=== PATIENT | male | born 1955 | race Caucasian/White ===

== ENCOUNTER 2022-06-26 17:40 | Inpatient (IN) | payer OTHER ==
[~2022-06-26] VITALS: Ht 167.6 cm; Wt 81.6 kg
[2022-06-26 17:54] VITALS: BP 106/55
--- NOTE | 2022-06-26 18:00 | NUR ---
PT RECEIVED, CARE ASSUMED. PT BIB EMS FOR EVALUATION OF LOW HGB. NO SIGNS OF ACTIVE BLEEDING. CONNECTED PT TO TELE MONITOR. INFORMED PT OF BLOOD TRANSFUSION CONSENT. PT UNDERSTANDS. PT SIGNED CONSENT FORM. WILL CONTINUE TO MONITOR
[2022-06-26 18:13] LABS: BASOPHILS # (AUTO) 0.2 K/uL (0.00-0.22); BASOPHILS % (AUTO) 1.7 % (0.0-2.0); EOSINOPHILS # (AUTO) 0.1 K/uL (0-0.4); EOSINOPHILS % (AUTO) 0.8 % (0.0-4.0); LYMPHOCYTES # (AUTO) 1.8 K/uL (2.0-11.5); LYMPHOCYTES % (AUTO) 17.9 % (20.5-51.1); MEAN CORPUSCULAR HEMOGLOBIN 29 pg (27-31); MEAN CORPUSCULAR HGB CONC 33 g/dL (33-37); MEAN CORPUSCULAR VOLUME 87.4 fL (80-94); MONOCYTES # (AUTO) 0.7 K/uL (0.8-1.0); MONOCYTES % (AUTO) 6.3 % (1.7-9.3); NEUTROPHILS # (AUTO) 7.6 K/uL (1.8-7.7); NEUTROPHILS % (AUTO) 73.3 % (42.2-75.2); PLATELET COUNT (AUTO) 448 K/uL (140-450); RED BLOOD CELL COUNT(AUTO) 1.83 MIL/uL (4.20-6.10); RED CELL DISTRIBUTION WIDTH 16.4 % (11.6-13.7); WHITE BLOOD COUNT (AUTO) 10.3 K/uL (4.8-10.8)
[2022-06-26 18:32] LABS: HEMOGLOBIN 5.3 g/dL (12.0-18.0)
[2022-06-26 18:43] LABS: PROTHROMBIN TIME 11.4 secs (10.8-13.4)
[2022-06-26] MEDS ORDERED: PANTOPRAZOLE 40 MG INJ VIAL IVP ONE (18:45)
[2022-06-26 18:48] LABS: ALBUMIN 1.7 g/dL (3.4-5.0); ANION GAP 8.2 (8-16); CARBON DIOXIDE 30.2 mmol/L (21-32); POTASSIUM 4.4 mmol/L (3.5-5.1); TOTAL BILIRUBIN 0.2 mg/dL (0.0-1.0)
[2022-06-26] MEDS ORDERED: ONDANSETRON 4 MG/2 ML VIAL IVP PRN (19:30)
[2022-06-26] MEDS ORDERED: PANTOPRAZOLE 40 MG INJ VIAL ONE ×2 (19:54→21:52)
--- NOTE | 2022-06-26 20:00 | NUR ---
PT ALERT AND ORIENTED X 4, BED BUND WITH MENON. WAITIG FOR BLOOD TRANSUFION
--- NOTE | 2022-06-26 21:00 | NUR ---
PT WANTED TO EAT SOMETHING.
[2022-06-26] MEDS: PANTOPRAZOLE 80 MG in NACL 0.9% 100 ML IVP SCH (22:11)
[2022-06-26] MEDS: NACL 0.9% 1,000 ML IV SCH (22:19)
[2022-06-26] MEDS ORDERED: ACET-2619 PO (23:20)
--- NOTE | 2022-06-26 23:20 | NUR ---
START THE BLOOD TRANSUFION
[2022-06-26] MEDS ORDERED: APIX2.5 PO (23:27)
[2022-06-26] MEDS ORDERED: NOVR SUBQ (23:27)
[2022-06-26] MEDS ORDERED: BISA-213 RC (23:27)
[2022-06-26] MEDS ORDERED: GABA300C PO (23:27)
[2022-06-26] MEDS ORDERED: BUPR-160 PO (23:27)
--- NOTE | 2022-06-26 23:30 | NUR ---
PT COMPALINING CHEST PAIN 01/19.
[2022-06-26] MEDS ORDERED: PRO5 PO (23:32)
[2022-06-26] MEDS ORDERED: LACT10CA1 PO (23:32)
[2022-06-26] MEDS ORDERED: PROP10TA28 PO (23:32)
[2022-06-26] MEDS ORDERED: TAMS0.4C97 PO (23:32)
[2022-06-26] MEDS ORDERED: MAGN400S60 PO (23:32)
[2022-06-26] MEDS ORDERED: ACET-9527 PO (23:32)
--- NOTE | 2022-06-26 23:33 | NUR ---
MED RECONCILE AND PT BELONGINGS COMPLETED
[2022-06-26] MEDS: MORPHINE SULFATE 2 MG/ML SYR IVP PRN (23:53)
--- NOTE | 2022-06-27 00:13 | NUR ---
ATTEMPTED TO CALL AND SON. NO ANSWER. PT AWARE. PT ANXIOUS AND IS WANTING TO SPEAK WITH FAMILY
[2022-06-27] MEDS: ACETAMINOPHEN 325 MG TAB PO PRN ×2 (02:33→18:03)
--- NOTE | 2022-06-27 02:55 | NUR ---
CHANGEDTOOK PIC OF THE WOUND LEFT LEG. PT WAS TURNED AND CHANGED
[2022-06-27] MEDS: MORPHINE SULFATE 2 MG/ML SYR IVP PRN ×4 (04:17→22:55)
[2022-06-27] MEDS ORDERED: PANTOPRAZOLE 40 MG INJ VIAL ONE (05:41)
[2022-06-27] MEDS: PANTOPRAZOLE 80 MG in NACL 0.9% 100 ML IVP SCH (06:02)
[2022-06-27 06:51] LABS: ALBUMIN 1.7 g/dL (3.4-5.0); ANION GAP 8.4 (8-16); CARBON DIOXIDE 29.3 mmol/L (21-32); CREATININE 0.9 mg/dL (0.6-1.3); MAGNESIUM 2.2 mg/dL (1.8-2.4); POTASSIUM 4.7 mmol/L (3.5-5.1); TOTAL BILIRUBIN 0.2 mg/dL (0.0-1.0)
[2022-06-27 07:07] LABS: BASOPHILS # (AUTO) 0.2 K/uL (0.00-0.22); BASOPHILS % (AUTO) 1.9 % (0.0-2.0); EOSINOPHILS # (AUTO) 0.1 K/uL (0-0.4); EOSINOPHILS % (AUTO) 1.4 % (0.0-4.0); LYMPHOCYTES # (AUTO) 1.4 K/uL (2.0-11.5); LYMPHOCYTES % (AUTO) 17.7 % (20.5-51.1); MEAN CORPUSCULAR HEMOGLOBIN 29 pg (27-31); MEAN CORPUSCULAR HGB CONC 34 g/dL (33-37); MEAN CORPUSCULAR VOLUME 87.8 fL (80-94); MONOCYTES # (AUTO) 0.5 K/uL (0.8-1.0); MONOCYTES % (AUTO) 6.3 % (1.7-9.3); NEUTROPHILS # (AUTO) 5.9 K/uL (1.8-7.7); NEUTROPHILS % (AUTO) 72.7 % (42.2-75.2); PLATELET COUNT (AUTO) 374 K/uL (140-450); RED BLOOD CELL COUNT(AUTO) 2.09 MIL/uL (4.20-6.10); RED CELL DISTRIBUTION WIDTH 15.8 % (11.6-13.7); WHITE BLOOD COUNT (AUTO) 8.1 K/uL (4.8-10.8)
--- NOTE | 2022-06-27 07:15 | NUR ---
RECEIVED REPORT FROM XAVIER WINN. ASSUMED CARE AT THIS TIME.
[2022-06-27 07:47] LABS: HEMATOCRIT 18.3 % (36-52); HEMOGLOBIN 6.2 g/dL (12.0-18.0)
--- NOTE | 2022-06-27 08:06 | NUR ---
Patient will be admitted to care of DR. KAUFFMAN. Admited to TELE. Will go to room 127A. Belongings list completed. Report to XAVIER PACHECO.
--- NOTE | 2022-06-27 08:20 | NUR ---
DR KAUFFMAN CALLED. ADVISED OF 6.2 HGB. NO NEW ORDERS
[2022-06-27] MEDS: NACL 0.9% 1,000 ML IV SCH ×2 (08:51→22:10)
--- NOTE | 2022-06-27 09:16 | NUR ---
Admitted from , with chief complaint of , 67 y/o ,Male, Cooperative, oriented to call light, bed, phone,television, bathroom, smoking policy, visiting hours, procedures, ID bracelet on. Belongings list checked. PATIENT RECEIVED FROM ER VIA GURNEY BY ONE OF ASAEL KRISHNAN , ON IV FLUID N/S 0.9% 75CC/H SKIN NOT INTACT , LEFT BKA WITH BAD WOUND , EDEMA ON RIGHT LEG , MONITOR APPLIED A/OX3 , BEDBOUND , FOR BLOOD TRANSFUSION , SAFETY PROACTION ON PLACE , SIDE RAILS UP X3 BED IN LOWER POSITION , CALL LIGHT WITHIN REACH , NPO , FOR IG CONSULT , STILL UNDER OBSERVE .
[2022-06-27] MEDS: PANTOPRAZOLE 40 MG INJ VIAL IVP SCH ×2 (09:21→20:51)
--- NOTE | 2022-06-27 09:49 | NUR ---
WOUND CARE NOTE: PT. ADMITTED WITH LEFT BKA SURGICAL OPEN WOUND, NO SUMMER OR SUTURES OBSERVED AT THIS TIME. LEFT KNEE STUMP SURGICAL WOUND 64M50R0.5CM 75% RED /PINK GRANULATION TISSUE AND 25 % SCATTERED THIN YELLOW SLOUGH TISSUE, MODERATE AMOUNT SEROSANGUINEOUS DRAINAGE, NO ODOR, RAUL WOUND SKIN MOIST, INTACT. NO ERYTHEMA, PAIN 2/10. POC DISCUSSED WITH DR. KAUFFMAN AND REQUEST SURGEON CONSULT. CHARGE NURSE KATHERINE IS AWARE.PT. WITH LOW JOSEPH SCALE AT MODERATE TO HIGH RISK, CONTINUE TO FOLLOW PRESSURE INJURY PREVENTION INTERVENTIONS. RECOMMENDATIONS -SURGEON CONSULT LEFT MARTINEZ WOUND -CLEANSE LEFT KNEE STUMP WITH NS, PAT DRY, APPLY HYDROGEL WITH OIL EMULSION DRESSING TO WOUND BED, COVER WITH ABD PAD AND WRAP WITH KERLIX ROLL, SECURED WITH TAPE QD AND PRN IF SOILING -POSITIONING: TURN AND REPOSITION PATIENT Q 2H OR SOONER USE PILLOWS TO KEEP BONY PROMINENCES FROM DIRECT CONTACT WITH SURFACES USE REPOSITIONING WEDGES TO PROVIDE 30-DEGREE ANGLE FOR SIDE LYING POSITIONS OFFLOADING OR FOAM DRESSING TO ALL TUBING TO PREVENT MEDICAL DEVICES RELATED PRESSURE INJURY -RE-EVALUATING AND MANAGING INCONTINENCE MONITOR SKIN CONDITION DURING POSITION CHANGE DO NOT MASSAGE REDNESS, BONY PROMINENCES FREQUENT RAUL-CARE AND PROVIDE BARRIER CREAMS PRN IF SOILING MOISTURE CONTROL BY OFFER BED TAYLOR/URINAL /ABSORBENT PAD TO WICK AND HOLD MOISTURE KEEP SKIN DRY AND PROTECT FROM FRICTION -MANAGE FRICTION/SHEAR/MOBILITY KEEP HOB AT THE LOWEST LEVEL OF ELEVATION NO MORE THAN 30 DEGREE UNLESS OTHERWISE CONTRAINDICATED USE LIFT SHEET OR TRANSFER DEVICE TO MOVE PATIENT AND PREVENT LATERAL SHEER. PROTECT HEELS, ELBOWS BONY PROMINENCES WITH SKIN BERRIES OR FOAM DRESSING IF EXPOSED TO FRICTION OFFLOAD BILATERAL HEELS BY PLACING PILLOWS UNDER CALVES AT ALL TIMES, UNLESS OTHERWISE CONTRAINDICATED -PRESSURE REDISTRIBUTION SURFACE THERAPY ALIYA ISOFLEX MATTRESS -NUTRITION: PLEASE FOLLOW RD RECOMMENDATIONS AND OFFER NUTRITION SUPPLEMENTS IF ORDERED.
--- NOTE | 2022-06-27 09:58 | NUR ---
PATIENT HAS BEEN SCREENED AND CATEGORIZED MODERATE NUTRITION RISK. PATIENT WILL BE SEEN WITHIN 3-5 DAYS OF ADMISSION. REVIEWED BY BEBE FERRO RD
[2022-06-27] MEDS ORDERED: SKINTEGRITY HYDROGEL TP PRN (10:05)
[2022-06-27 10:59] VITALS: BP 158/32
--- NOTE | 2022-06-27 12:00 | NUR ---
DR KAUFFMAN IFORMED ABOUT PATIENT BP , NO ORDER
[2022-06-27 13:01] VITALS: BP 144/59
[2022-06-27] MEDS: SKINTEGRITY HYDROGEL TP SCH (13:32)
--- NOTE | 2022-06-27 14:55 | NUR ---
NURSES NOTE PATIENT A/OX3 , VSS , WITH MENON CATHETER , CONTINENT IG , SKIN NOT INTACT , DRESSING DONE ON ER HE RECEIVED TWO UNT OF BLOOD , WAITING FOR H&H TO CHECK AFTER BLD TX .
[2022-06-27 17:18] VITALS: BP 168/55
--- NOTE | 2022-06-27 19:43 | NUR ---
`SHIFT REPORT GIVEN TO MÓNICA PARK ALL HER QUESTION ANSWER .
[2022-06-27 19:48] LABS: BASOPHILS # (AUTO) 0.1 K/uL (0.00-0.22); EOSINOPHILS # (AUTO) 0.1 K/uL (0-0.4); EOSINOPHILS % (AUTO) 0.9 % (0.0-4.0); HEMATOCRIT 22.6 % (36-52); HEMOGLOBIN 7.6 g/dL (12.0-18.0); LYMPHOCYTES # (AUTO) 1.5 K/uL (2.0-11.5); LYMPHOCYTES % (AUTO) 15.3 % (20.5-51.1); MEAN CORPUSCULAR HEMOGLOBIN 30 pg (27-31); MEAN CORPUSCULAR HGB CONC 34 g/dL (33-37); MEAN CORPUSCULAR VOLUME 88.7 fL (80-94); MONOCYTES # (AUTO) 0.6 K/uL (0.8-1.0); MONOCYTES % (AUTO) 6.3 % (1.7-9.3); NEUTROPHILS # (AUTO) 7.5 K/uL (1.8-7.7); NEUTROPHILS % (AUTO) 76.5 % (42.2-75.2); PLATELET COUNT (AUTO) 400 K/uL (140-450); RED BLOOD CELL COUNT(AUTO) 2.54 MIL/uL (4.20-6.10); WHITE BLOOD COUNT (AUTO) 9.8 K/uL (4.8-10.8)
[2022-06-27 20:00] VITALS: BP 145/54
--- NOTE | 2022-06-27 20:00 | NUR ---
PATIENT AWAKE ALERT VERBALLY RESPONSIVE IN NEPALI. O2 AT 2L NC SATING 96%. NO COMPLAINTS OF PAIN AT THIS TIME. IVF NS INFUSING 75 ML/HR ON THE RFA. MENON CATHETER DRAINING CLEAR YELLOW URINE. CALL LIGHT WITHIN REACH. PATIENT WITH BKA DRESSING INTACT. ALL SAFETY PRECAUTIONS ARE IN PLACE.
--- NOTE | 2022-06-27 20:51 | NUR ---
SCHEDULED DUE MEDICATION ADMINISTERED.
--- NOTE | 2022-06-27 22:55 | NUR ---
PATIENT COMPLAINED OF MODERATE PAIN ON THE LEFT STUMP, MEDICATED WITH MORPHINE PRN.
[2022-06-28] VITALS: BP 160/37
[2022-06-28] MEDS: MORPHINE SULFATE 2 MG/ML SYR IVP PRN ×4 (03:37→22:53)
[2022-06-28 03:38] LABS: APPEARANCE,URINE CLEAR (CLEAR); BILIRUBIN,URINE NEGATIVE (NEGATIVE); BLOOD, URINE NEGATIVE (NEGATIVE); COLOR,URINE YELLOW (YELLOW); LEUKOCYTE ESTERASE ,URINE NEGATIVE (NEGATIVE); NITRITE, URINE NEGATIVE (NEGATIVE); UGLUCOSE NEGATIVE (NEGATIVE)
[2022-06-28 04:00] VITALS: BP 138/35
--- NOTE | 2022-06-28 04:45 | NUR ---
CALLED PER PATIENT REQUEST. PATIENT SPOKE TO .
[2022-06-28 05:49] LABS: BASOPHILS # (AUTO) 0.1 K/uL (0.00-0.22); BASOPHILS % (AUTO) 1.2 % (0.0-2.0); EOSINOPHILS # (AUTO) 0.1 K/uL (0-0.4); EOSINOPHILS % (AUTO) 1.6 % (0.0-4.0); HEMATOCRIT 21.3 % (36-52); HEMOGLOBIN 7.3 g/dL (12.0-18.0); LYMPHOCYTES # (AUTO) 1.2 K/uL (2.0-11.5); LYMPHOCYTES % (AUTO) 14.7 % (20.5-51.1); MEAN CORPUSCULAR HEMOGLOBIN 30 pg (27-31); MEAN CORPUSCULAR HGB CONC 34 g/dL (33-37); MEAN CORPUSCULAR VOLUME 88.5 fL (80-94); MONOCYTES # (AUTO) 0.5 K/uL (0.8-1.0); MONOCYTES % (AUTO) 6.7 % (1.7-9.3); NEUTROPHILS % (AUTO) 75.8 % (42.2-75.2); PLATELET COUNT (AUTO) 392 K/uL (140-450); RED BLOOD CELL COUNT(AUTO) 2.41 MIL/uL (4.20-6.10); RED CELL DISTRIBUTION WIDTH 16.2 % (11.6-13.7); WHITE BLOOD COUNT (AUTO) 7.9 K/uL (4.8-10.8)
[2022-06-28 08:00] VITALS: BP 195/75
[2022-06-28] MEDS: PANTOPRAZOLE 40 MG INJ VIAL IVP SCH ×2 (08:00→20:44)
--- NOTE | 2022-06-28 08:11 | NUR ---
BEDSIDE ENDORSEMENT GIVEN TO DAY SHIFT NURSE VIRGIL FOR CONTINUITY OF CARE.
--- NOTE | 2022-06-28 08:23 | NUR ---
GOT REPORT FROM THE NIGHT NURSE, PT AWAKE NO SOB [id number]
[2022-06-28] MEDS ORDERED: MIDAZOLAM 2 MG/2 ML VIAL ONE ×2 (08:28→08:29)
[2022-06-28] MEDS ORDERED: fentaNYL citrate 0.05 MG/ML VIAL ONE (08:29)
--- NOTE | 2022-06-28 09:15 | NUR ---
IS OFF THE UNIT FOR EGD.[id number]
[2022-06-28] MEDS ORDERED: fentaNYL citrate 0.05 MG/ML VIAL IVP ONE (09:35)
[2022-06-28] MEDS ORDERED: MIDAZOLAM 2 MG/2 ML VIAL IVP ONE (09:35)
--- NOTE | 2022-06-28 10:41 | NUR ---
PT BP NOW IS 162\74 .[id number]
[2022-06-28] MEDS: NACL 0.9% 1,000 ML IV SCH (11:30)
[2022-06-28] MEDS: BLOOD GLUCOSE MONITORING 1 DEV DEV FS SCH ×3 (11:30→20:43)
[2022-06-28] MEDS ORDERED: DEXTROSE 50% 50 ML SYR IVP PRN (11:50)
[2022-06-28 12:00] VITALS: BP 149/74
[2022-06-28] MEDS: SKINTEGRITY HYDROGEL TP SCH (13:47)
--- NOTE | 2022-06-28 13:48 | NUR ---
DRESSING DONE ON THE LEFT BKA. PLAN FOR SURGERY BUT DO NOT KNOW WHEN YET.[id number]
[2022-06-28 16:00] VITALS: BP 161/67
[2022-06-28] MEDS: LANSOPRAZOLE 30 MG CAPDR PO SCH (16:57)
--- NOTE | 2022-06-28 17:00 | NUR ---
DISCHARGE PLANNING PATIENT IS AN 67 MALE ADMITTED IN [facility]/ED ON 06/26/2022 DUE TO SEPSIS. SW MEET WITH PATIENT, AND LIZY ANGEL AT BEDSIDE TO GATHER HIS COLLATERAL INFORMATION. (PATIENT IS ROMANSH SPEAKING) AND REPORTED DURING INTERVIEW THAT HE WAS TIRED AND DID NOT WANT TO ANSWER QUESTIONS. THEREFORE HIS AND ELIZABETH WOODS AT BEDSIDE PROVIDED MUST OF THE INFORMATION. PER PATIENT'S PATIENT WAS DISCHARGE FROM [facility] AND SEND TO SNF ON 06/17/2022 TO [facility] THE FACILITY SEND PATIENT TO THE HOSPITAL [facility] AND HE SHOULD BE RETURN TO THE FACILITY WHEN HE IS STABLE. PER PATIENT'S THEY JUST WANT PATIENT TO BE STABLE BEFORE HE CAN RETURN TO THE FACILITY. PER PATIENT'S PREVIOUS TO THE HOSPITALIZATION PATIENT WAS ABLE TO BE INDEPENDENT AND WAS IN COMPLIANCE WITH HIS MEDICATIONS THEY GET FROM [facility] IN [place] [facility]. PER PATIENT'S HE HAS NO A.D. AND DECLINED ALL INF. FORMS PROVIDED BY [facility]. PER PATIENT'S PATIENT HAS NO DME AT HOME AND HE WILL BE FOLLOWING MD RECOMMENDATIONS TO RETURN TO SNF FACILITY. PATIENT'S THANKED SW FOR THE MEETING. SW CONTACTED PATIENT'S SNF FACILITY [facility] AT SPOKE TO ALBERT(SENIOR RUBY DEVELOPER) ABOUT PATIENT INFORMATION,SW CONFIRMED INFORMATION AND HE IS ON A BED HOLD ON SKILL CARE ABLE TO RETURN TO THEIR FACILITY WHEN HE IS READY AND STABLE TO DISCHARGE. NO ISSUES WITH MEDICATIONS AND MD CARE FRON SNF. [facility]/CM WILL FOLLOW UP WITH PATIENT NEEDED.
[2022-06-28] MEDS: INSULIN LISPRO SLIDING SCALE 100 UNITS/ML VIAL SUBQ PRN (17:19)
[2022-06-28 20:00] VITALS: BP 172/75
[2022-06-28] MEDS: SUCRALFATE 1 GM TAB PO SCH (20:44)
[2022-06-28] MEDS: hydrALAZINE 20 MG/ML VIAL IVP PRN (22:53)
[2022-06-29] VITALS: BP 143/59
[2022-06-29] MEDS: NACL 0.9% 1,000 ML IV SCH ×2 (00:50→14:22)
[2022-06-29] MEDS: hydrALAZINE 20 MG/ML VIAL IVP PRN ×2 (01:51→05:55)
[2022-06-29 04:00] VITALS: BP 168/60
[2022-06-29 06:23] LABS: BASOPHILS # (AUTO) 0.1 K/uL (0.00-0.22); EOSINOPHILS # (AUTO) 0.2 K/uL (0-0.4); HEMOGLOBIN 7.7 g/dL (12.0-18.0); LYMPHOCYTES # (AUTO) 1.2 K/uL (2.0-11.5); LYMPHOCYTES % (AUTO) 17.5 % (20.5-51.1); MEAN CORPUSCULAR HEMOGLOBIN 31 pg (27-31); MEAN CORPUSCULAR HGB CONC 34 g/dL (33-37); MEAN CORPUSCULAR VOLUME 91.1 fL (80-94); MONOCYTES # (AUTO) 0.4 K/uL (0.8-1.0); MONOCYTES % (AUTO) 5.9 % (1.7-9.3); NEUTROPHILS # (AUTO) 4.9 K/uL (1.8-7.7); NEUTROPHILS % (AUTO) 71.6 % (42.2-75.2); PLATELET COUNT (AUTO) 434 K/uL (140-450); RED BLOOD CELL COUNT(AUTO) 2.52 MIL/uL (4.20-6.10); RED CELL DISTRIBUTION WIDTH 16.3 % (11.6-13.7); WHITE BLOOD COUNT (AUTO) 6.8 K/uL (4.8-10.8)
[2022-06-29] MEDS: BLOOD GLUCOSE MONITORING 1 DEV DEV FS SCH ×4 (06:36→22:30)
[2022-06-29] MEDS: INSULIN LISPRO SLIDING SCALE 100 UNITS/ML VIAL SUBQ PRN ×3 (06:39→22:33)
[2022-06-29] MEDS: LANSOPRAZOLE 30 MG CAPDR PO SCH ×2 (07:00→16:48)
--- NOTE | 2022-06-29 07:31 | NUR ---
GOT REPORT FROM THE NIGHT NURSE, PT AWAKE NEEDS BLANKET C\O COLD, IV INFUSING NO SOB. [id number]
[2022-06-29] MEDS: MORPHINE SULFATE 2 MG/ML SYR IVP PRN ×2 (07:49→13:40)
[2022-06-29 08:00] VITALS: BP 184/51
[2022-06-29] MEDS: PANTOPRAZOLE 40 MG INJ VIAL IVP SCH ×2 (08:20→21:30)
[2022-06-29] MEDS: DOCUSATE SODIUM 100 MG GELCAP PO SCH (08:20)
[2022-06-29] MEDS: SUCRALFATE 1 GM TAB PO SCH ×2 (08:20→21:44)
[2022-06-29] MEDS: TAMSULOSIN 0.4 MG CAP PO SCH (09:08)
[2022-06-29] MEDS ORDERED: NIFEdipine 30 MG TABER PO SCH (09:08)
[2022-06-29 12:00] VITALS: BP 111/91
[2022-06-29] MEDS: THERAHONEY GEL 42.5 GM TP SCH (13:26)
[2022-06-29] MEDS: SKINTEGRITY HYDROGEL TP SCH (13:27)
[2022-06-29] MEDS: Z-GUARD PASTE TP SCH (13:38)
[2022-06-29 16:00] VITALS: BP 132/82
[2022-06-29 17:33] LABS: ALBUMIN 1.8 g/dL (3.4-5.0); CARBON DIOXIDE 26.4 mmol/L (21-32); CREATININE 0.8 mg/dL (0.6-1.3); POTASSIUM 4.4 mmol/L (3.5-5.1); TOTAL BILIRUBIN 0.2 mg/dL (0.0-1.0)
--- NOTE | 2022-06-29 19:30 | NUR ---
RECEIVED REPORT FROM DAY SHIFT NURSE VIRGIL FOR CONTINUITY OF CARE. PATIENT IS A&O X4. PATIENT IS ON NC 2L; BREATHING IS NORMAL WITH SYMMETRICAL RISE AND FALL OF CHEST. PATIENT'S IV IS A 20G RFA, RUNNING NS 75; AND A 20G RIGHT JUGULAR. IS IN ROOM WITH PATIENT; HAS PERMISSION FROM PLATINUM AND PALLADIUM KETTLE TENDER TO STAY THE NIGHT, PER DAY SHIFT NURSE. PATIENT IS SITTING UP IN BED IN HIGH-FOWLERS POSITION. 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 LEFT KNEE IS WRAPPED IN A DRESSING; DRESSING IS DRY AND INTACT. WILL CONTINUE TO OBSERVE PATIENT.
[2022-06-29 20:00] VITALS: BP 128/50
[2022-06-29] MEDS: METOPROLOL 25 MG TAB PO SCH (21:44)
[2022-06-29] MEDS: SENNA 8.6 MG TAB PO SCH (21:44)
[2022-06-30] VITALS: BP 135/58
--- NOTE | 2022-06-30 01:00 | NUR ---
MEDICATIONS WERE GIVEN TO PATIENT. PATIENT TOLERATED WELL. BS WAS OBTAINED, BS WAS 163, [address] FERRO (ANESTHESIOLOGIST) CALLED [phone] AND REQUESTED THE FOLLOWING ORDERS BE REQUESTED TO PATIENT'S PHYSICIAN: 12 LEAD EKG; CBC, CHEMISTRY, URINE DRUG ANALYSIS, AND 1 UNIT OF RBC. ATTEMPTED TO CONTACT MEDICAL GROUP FOR DR. KAUFFMAN OVER THE COARSE OF 90 MINUTES; PHONE LINE IS CONSTANTLY BUSY (ER HAVING SAME ISSUE). NOTIFIED DR. FERRO AT 0015 AND INFORMED HIM THAT I WAS NOT ABLE TO GET A HOLD OF THE PATIENT'S AIRFIELD ENGINEER OFFICER PHYSICIAN. DR. FERRO SAID TO PUT THE ORDERS UNDER HIS NAME EXCEPT FOR THE BLOOD. PLACED ORDERS FOR: EKG, CHEMISTRY, URINE DRUG ANALYSIS UNDER DR. FERRO'S NAME (DID NOT PLACE ORDER FOR CBC, ONE WAS ALREADY PLACED BY DAY SHIFT FOR TANK REFINISHER). OBTAINED URINE SAMPLE FROM PATIENT. WILL CONTINUE TO OBSERVE PATIENT.
[2022-06-30] MEDS: Z-GUARD PASTE TP SCH ×2 (01:43→13:00)
[2022-06-30] MEDS: MORPHINE SULFATE 2 MG/ML SYR IVP PRN ×2 (02:31→06:34)
--- NOTE | 2022-06-30 02:49 | NUR ---
CALLED RT NAVID TO CHECK ON PATIENT; PATIENT WAS SITTING UP IN BED STATING HE WAS HAVING TROUBLE BREATHING. RT CAME AND STATED SHE COULD HEAR WHEEZING IN PATIENT'S LUNGS, BUT PATIENT DOES NOT HAVE A BREATHING TREATMENT ON FILE. RT CHECKED WITH RT DEPARTMENT; SHE CAME BACK AND STATED THAT SHE CAN NOT GIVE A BREATHING TREATMENT TO THE PATIENT BECAUSE THERE ARE NO ORDERS ON FILE AND NO PAST HISTORY LISTED OF BREATHING ISSUES. PATIENT WAS INCREASED FROM 5L NC TO 6L. CHECKED PATIENT'S O2 AFTER A FEW MINUTES; SATURATION IS AT 100%. PATIENT WAS STILL STATING HE COULDN'T BREATH; PATIENT DOES NOT HAVE ANY ANTIANXIETY MEDS ON FILE; BUT PATIENT DID INDICATE PAIN CAUSING DISCOMFORT. PATIENT HAD MORPHINE ON FILE. GAVE PATIENT MORPHINE TO HELP ALLEVIATE PAIN. WILL CONTINUE TO OBSERVE PATIENT.
--- NOTE | 2022-06-30 02:50 | NUR ---
CALLED BY NURSE, DICKSON, TO ASSESS PT COMPLAINING OF SHORTNESS OF BREATH. UPON ARRIVAL PT APPEARED TO BE ANXIOUS AND IN DISTRESS USING ABDOMINAL MUSCLES TO BREATH, AUDIBLE WHEEZING HEAR,AND HE REPEATEDLY SAID HE COULD NOT BREATH. COULD NOT REACH DR TO GET A BREATHING TREATMENT, BUT ONE WAS ORDERED BY RT DEPT DUE TO PT sob AND DISTRESS. O2 SAT 96, RR 24, AND HR 78 4 LPM VIA NASAL CANNULA.
[2022-06-30] MEDS: NACL 0.9% 1,000 ML IV SCH ×2 (03:30→16:50)
[2022-06-30 03:57] LABS: ALBUMIN 1.7 g/dL (3.4-5.0); ANION GAP 9.7 (8-16); CARBON DIOXIDE 28.5 mmol/L (21-32); CREATININE 0.8 mg/dL (0.6-1.3); POTASSIUM 4.2 mmol/L (3.5-5.1); TOTAL BILIRUBIN 0.2 mg/dL (0.0-1.0)
[2022-06-30 04:00] VITALS: BP 102/64
[2022-06-30 04:01] LABS: BARBITURATE, URINE NEGATIVE ng/ml (NEG <=200); BENZODIAZEPINE, URINE NEGATIVE ng/mL (NEG <=200); CANNABINOID, URINE NEGATIVE ng/mL (NEG <=50); COCAINE, URINE NEGATIVE ng/mL (NEG <=300); OPIATE, URINE POSITIVE ng/mL (NEG <=2000); PHENCYCLIDINE SCREEN,URINE NEGATIVE ng/mL (NEG <=25)
--- NOTE | 2022-06-30 05:04 | NUR ---
PRN TX NOT GIVEN SINCE PT GIVEN MORPHINE FOR PAIN AND ANXIETY. PT RELAXED AND WAS NO LONGER IN DISTRESS.
[2022-06-30 05:16] LABS: BASOPHILS # (AUTO) 0.1 K/uL (0.00-0.22); BASOPHILS % (AUTO) 1.8 % (0.0-2.0); EOSINOPHILS # (AUTO) 0.2 K/uL (0-0.4); EOSINOPHILS % (AUTO) 3.3 % (0.0-4.0); HEMATOCRIT 20.7 % (36-52); LYMPHOCYTES # (AUTO) 1.4 K/uL (2.0-11.5); LYMPHOCYTES % (AUTO) 20.7 % (20.5-51.1); MEAN CORPUSCULAR HEMOGLOBIN 31 pg (27-31); MEAN CORPUSCULAR HGB CONC 34 g/dL (33-37); MEAN CORPUSCULAR VOLUME 90.6 fL (80-94); MONOCYTES # (AUTO) 0.5 K/uL (0.8-1.0); MONOCYTES % (AUTO) 7.8 % (1.7-9.3); NEUTROPHILS # (AUTO) 4.4 K/uL (1.8-7.7); NEUTROPHILS % (AUTO) 66.4 % (42.2-75.2); PLATELET COUNT (AUTO) 405 K/uL (140-450); RED BLOOD CELL COUNT(AUTO) 2.29 MIL/uL (4.20-6.10); RED CELL DISTRIBUTION WIDTH 16.1 % (11.6-13.7); WHITE BLOOD COUNT (AUTO) 6.7 K/uL (4.8-10.8)
[2022-06-30] MEDS: BLOOD GLUCOSE MONITORING 1 DEV DEV FS SCH ×4 (06:44→21:02)
--- NOTE | 2022-06-30 06:45 | NUR ---
PATIENT'S HAD CALLED AND REQUESTED MORPHINE FOR HER FOR PAIN. INFORMED PATIENT THAT PAIN MEDICATION IS TOO EARLY UNTIL 0631. AT 0628 PATIENT'S CALLED AND REQUESTED PAIN MEDICATION FOR HER . ADMINISTERED MORPHINE FOR PAIN AT 0634. PATIENT TOLERATED WELL. OBTAINED BS, BS WAS 117, NO COVERAGE NEEDED. WILL ENDORSE CARE TO DAY SHIFT NURSE.
[2022-06-30] MEDS: LANSOPRAZOLE 30 MG CAPDR PO SCH ×2 (07:41→16:37)
--- NOTE | 2022-06-30 07:44 | NUR ---
ENDORSED TO DAY SHIFT NURSE BECKY FOR CONTINUITY OF CARE. PATIENT IS STABLE.
--- NOTE | 2022-06-30 07:45 | NUR ---
RECEIVED PT CARE AND REPORT FROM DICKSON PARK. PT IS RESTING IN BED SEMI FOWVIKTOR, A&CHANCE4. AT BEDSIDE. NO VISIBLE S/S OF DISTRESS OR DISCOMFORT, DENIES ANY PAIN OR SOB AT THIS TIME. CALL LIGHT IS WITHIN REACH, ALL NEEDS MET AT THIS TIME.
[2022-06-30 08:00] VITALS: BP 142/86
--- NOTE | 2022-06-30 08:09 | NUR ---
TEXTED DR. KAUFFMAN AND SURGEON DR. BENNETT TO INFORM THEM OF PATIENT'S HGB LEVEL OF 7.0 THIS MORNING. HGB WAS 7.7 YESTERDAY 06/29/2022. DR. KAUFFMAN ORDERED 1 PRBC, INFORMED SURGEON DR. BENNETT.
--- NOTE | 2022-06-30 08:12 | NUR ---
checked on pt. no distress noted. pt was found on 4.5l nc. turned pt down to 3l nc sating at 94%. will continue to monitor.
--- NOTE | 2022-06-30 09:03 | NUR ---
DR. KAUFFMAN ORDERED 1 UNIT PRBC. ORDER PLACED.
[2022-06-30] MEDS: PANTOPRAZOLE 40 MG INJ VIAL IVP SCH ×2 (09:37→20:46)
[2022-06-30] MEDS: SUCRALFATE 1 GM TAB PO SCH ×2 (09:38→20:50)
[2022-06-30] MEDS: METOPROLOL 25 MG TAB PO SCH ×2 (09:38→20:49)
[2022-06-30] MEDS: DOCUSATE SODIUM 100 MG GELCAP PO SCH (09:38)
[2022-06-30] MEDS: TAMSULOSIN 0.4 MG CAP PO SCH (09:38)
--- NOTE | 2022-06-30 11:25 | NUR ---
PATIENT LEFT FOR SURGERY. WILL COMPLETE BLOOD SUGAR CHECK WHEN PT RETURNS.
[2022-06-30] MEDS ORDERED: BUPIVACAINE-MPF 0.25% 30 ML VIAL INJ ONE ×2 (12:04→13:06)
[2022-06-30] MEDS: THERAHONEY GEL 42.5 GM TP SCH (13:00)
[2022-06-30] MEDS: SKINTEGRITY HYDROGEL TP SCH (13:00)
[2022-06-30] MEDS ORDERED: PROPOFOL 200 MG/20 ML VIAL IV ONE (13:34)
[2022-06-30] MEDS ORDERED: hydrALAZINE 20 MG/ML VIAL IVP PRN (13:54)
[2022-06-30] MEDS ORDERED: ONDANSETRON 4 MG/2 ML VIAL IVP PRN (13:55)
[2022-06-30] MEDS ORDERED: BLOOD GLUCOSE MONITORING 1 DEV DEV FS SCH (13:55)
[2022-06-30] MEDS: LACTATED RINGERS 1,000 ML IV SCH ×3 (14:10→23:55)
--- NOTE | 2022-06-30 14:10 | NUR ---
PATIENT RETURNED FROM SURGERY. ACCOMPANIED BY NURSE. FAMILY AT BEDSIDE. I WAS AT LUNCH AND DID NOT RECEIVE PT. CHARGE NURSE BELLO HONG.
--- NOTE | 2022-06-30 14:55 | NUR ---
WILL BEGIN LACTATED RINGERS FLUIDS AFTER BLOOD TRANSFUSION IS COMPLETED AND FLUSHED WITH SALINE.
--- NOTE | 2022-06-30 14:55 | NUR ---
UPON RETURN FROM LUNCH, PATIENT IS A&OX4, DENIES ANY PAIN OR SOB AT THIS TIME. STATED HE IS "FEELING BETTER". NO VISIBLE S/S OF DISTRESS OR DISCOMFORT. REQUESTING FOOD AND WATER. PATIENT ON REGULAR DIET. WILL PROVIDE SNACKS.
--- NOTE | 2022-06-30 15:30 | NUR ---
PT DID NOT RETURN WITH TELE BOX. ATTEMPTED TO CALL OR MULTIPLE TIMES. NO ANSWER. STAFF LEFT FOR THE DAY. TELE MONITOR RITA AND CHARGE NURSE BELLO ALLEN. STATED TO ENDORSE TO DAY SHIFT NEXT DAY FOR TELE. NEW TELE BOX GIVEN TO PATIENT.
[2022-06-30] MEDS: MORPHINE SULFATE 4 MG/ML SYR IV PRN (15:31)
[2022-06-30 16:00] VITALS: BP 123/60
--- NOTE | 2022-06-30 16:09 | NUR ---
06/30/22 RD INITIAL ASSESSMENT COMPLETED PLEASE REFER TO NUTRITION ASSESSMENT UNDER CARE ACTIVITY FOR ESTIMATED NUTRITIONAL NEEDS. 1. CONTINUE CCHO 60 GM DIET TOLERATED 2. MONITOR PO INTAKE AND NUTRITION RELATED LAB VALUES 3. RD TO FOLLOW-UP 3-5 DAYS, MODERATE RISK REVIEWED BY BEBE FERRO RD
[2022-06-30] MEDS: INSULIN LISPRO SLIDING SCALE 100 UNITS/ML VIAL SUBQ PRN ×2 (16:32→21:10)
[2022-06-30] MEDS: ALBUTEROL 0.083% 2.5 MG/3 ML NEBU INH PRN ×2 (18:00→22:56)
--- NOTE | 2022-06-30 18:17 | NUR ---
PT IS RESTING WITH OU CLOSED. AT BEDSIDE. NO VISIBLE S/S OF DISTRESS, DISCOMFORT, PAIN OR SOB. CALL LIGHT IS WITHIN REACH, ALL NEEDS MET AT THIS TIME. WILL ENDORSE TO NOC SHIFT.
--- NOTE | 2022-06-30 19:30 | NUR ---
RECEIVED REPORT FROM DAY SHIFT NURSE BECKY FOR CONTINUITY OF CARE. PATIENT IS A&O X3. PATIENT IS ON NC 5L; BREATHING IS NORMAL WITH SYMMETRICAL RISE AND FALL OF CHEST. PATIENT'S IV IS A 20G RFA; AND A 20G RIGHT JUGULAR, RUNNING LACTATED RINGER AT 100. IS IN ROOM WITH PATIENT. PATIENT IS SITTING UP IN BED IN HIGH-FOWLERS POSITION. PATIENT HAS A BELOW KNEE AMPUTATION TO THE LEFT KNEE, AND HAD DEBRIDEMENT DONE IN THE MORNING. LEFT KNEE IS WRAPPED IN A DRESSING; DRESSING IS DRY AND INTACT. WILL CONTINUE TO OBSERVE PATIENT.
[2022-06-30 20:00] VITALS: BP 120/77
[2022-06-30] MEDS: SENNA 8.6 MG TAB PO SCH (20:50)
[2022-07-01] VITALS: BP 130/66
[2022-07-01] MEDS: Z-GUARD PASTE TP SCH ×2 (01:20→13:15)
--- NOTE | 2022-07-01 03:00 | NUR ---
PATIENT'S DRESSING WAS SOAKED WITH COPIOUS AMOUNTS OF DRAINAGE. DRESSING WAS CHANGED ON STUMP AND THIGH WITH NEW ABDOMINAL PADS WRAPPED IN PLACE WITH DRESSING. PATIENT COMPLAINED OF NOT BEING ABLE TO BREATH. PATIENT WAS SATING AT 90%. CALLED RT TO DO BREATHING TREATMENT FOR PATIENT. INCREASED PATIENT'S O2 FLOW RATE. ASKED PATIENT IF HE HAS ANY PAIN AND IF HE WOULD LIKE SOME PAIN MEDICATION. PATIENT SAID NO; THERE'S NO PAIN. PENDING RT RESPONSE. WILL CONTINUE TO OBSERVE PATIENT.
[2022-07-01] MEDS: ALBUTEROL 0.083% 2.5 MG/3 ML NEBU INH PRN (03:13)
--- NOTE | 2022-07-01 03:20 | NUR ---
CALLED TO BEDSIDE TO ASSESS PT AND GIVE PRN TREATMENT. UPON ENTERING PATIENTS ROOM PATIENT WAS SATING AT 90% ON THEIR 3L NASAL CANNULA. PATIENT WAS EXHIBITING INCREASED WORK OF BREATHING. PUT PATIENT ON HIGHER FLOW NASAL CANNULA AND INCREASED LITERS TO 6. PATIENT WAS SATING 97% WHEN LEAVING BEDSIDE. WILL CONTINUE TO MONITOR.
[2022-07-01 04:00] VITALS: BP 136/39
[2022-07-01] MEDS: MORPHINE SULFATE 2 MG/ML SYR IVP PRN ×2 (04:34→18:38)
[2022-07-01] MEDS: NACL 0.9% 1,000 ML IV SCH ×2 (04:35→18:57)
--- NOTE | 2022-07-01 04:58 | NUR ---
PATIENT REQUESTED MORPHINE FOR PAIN. CHECKED PATIENT'S CHART AND VITALS. MORPHINE WAS APPROPRIATE TO ADMINISTER. ADMINISTERED MORPHINE AND HUNG BAG OF NS. NS IS RUNNING AT 75. PATIENT TOLERATED MEDICATION WELL. WILL CONTINUE TO OBSERVE PATIENT.
[2022-07-01 05:53] LABS: BASOPHILS # (AUTO) 0.1 K/uL (0.00-0.22); BASOPHILS % (AUTO) 1.2 % (0.0-2.0); EOSINOPHILS # (AUTO) 0.1 K/uL (0-0.4); EOSINOPHILS % (AUTO) 1.1 % (0.0-4.0); HEMATOCRIT 26.2 % (36-52); HEMOGLOBIN 8.7 g/dL (12.0-18.0); LYMPHOCYTES # (AUTO) 0.9 K/uL (2.0-11.5); LYMPHOCYTES % (AUTO) 10.6 % (20.5-51.1); MEAN CORPUSCULAR HEMOGLOBIN 30 pg (27-31); MEAN CORPUSCULAR HGB CONC 33 g/dL (33-37); MEAN CORPUSCULAR VOLUME 89.9 fL (80-94); MONOCYTES # (AUTO) 0.5 K/uL (0.8-1.0); NEUTROPHILS # (AUTO) 6.9 K/uL (1.8-7.7); NEUTROPHILS % (AUTO) 81.1 % (42.2-75.2); PLATELET COUNT (AUTO) 509 K/uL (140-450); RED BLOOD CELL COUNT(AUTO) 2.91 MIL/uL (4.20-6.10); RED CELL DISTRIBUTION WIDTH 17.9 % (11.6-13.7); WHITE BLOOD COUNT (AUTO) 8.5 K/uL (4.8-10.8)
[2022-07-01] MEDS: BLOOD GLUCOSE MONITORING 1 DEV DEV FS SCH ×4 (06:49→20:37)
[2022-07-01] MEDS: LANSOPRAZOLE 30 MG CAPDR PO SCH (06:49)
[2022-07-01] MEDS: INSULIN LISPRO SLIDING SCALE 100 UNITS/ML VIAL SUBQ PRN ×2 (06:58→17:32)
--- NOTE | 2022-07-01 07:29 | NUR ---
ENDORSED TO DAY SHIFT NURSE BECKY FOR CONTINUITY OF CARE. PATIENT IS STABLE.
--- NOTE | 2022-07-01 07:40 | NUR ---
RECEIVED PT CARE AND REPORT FROM DICKSON PARK. PT IS RESTING IN BED SEMI IFRAHWVIKTOR, A&OX3, APPEARS CALM. AT BEDSIDE. STATING THAT PATIENT HAD A HARD TIME BREATHING THROUGHOUT NIGHT AND REQUIRED MULTIPLE BREATHING TREATMENTS AND IS REQUESTING ANOTHER ONE AT THIS TIME. RT ALREADY AWARE ACCORDING TO . NO VISIBLE S/S OF DISTRESS OR DISCOMFORT. DENIES SOB AT THIS TIME. COMPLAINT OF 5/10 PAIN. WILL MEDICATE ORDERED. CALL LIGHT IS WITHIN REACH, ALL NEEDS MET AT THIS TIME.
[2022-07-01 08:00] VITALS: BP 163/53
[2022-07-01] MEDS: PANTOPRAZOLE 40 MG INJ VIAL IVP SCH ×2 (09:51→20:37)
[2022-07-01] MEDS: SUCRALFATE 1 GM TAB PO SCH ×2 (09:51→20:36)
[2022-07-01] MEDS: METOPROLOL 25 MG TAB PO SCH (09:51)
[2022-07-01] MEDS: TAMSULOSIN 0.4 MG CAP PO SCH (09:51)
[2022-07-01] MEDS: FUROSEMIDE 20 MG/2 ML VIAL IVP SCH ×3 (09:51→17:02)
[2022-07-01] MEDS: DOCUSATE SODIUM 100 MG GELCAP PO SCH (09:51)
[2022-07-01] MEDS: AMPICILLIN/SULBACTAM 1.5 GM in NACL 0.9% 50 ML IV SCH ×3 (09:52→18:00)
[2022-07-01] MEDS: LACTATED RINGERS 1,000 ML IV SCH (09:55)
--- NOTE | 2022-07-01 11:12 | NUR ---
RECEIVED CALL FROM PHARMACY ASKING TO CLARIFY ORDERS WITH DOCTOR FOR PREVACID AND PROTONIX. THEY STATED THAT PATIENTS USUALLY HAVE ONE OR THE OTHER AND WANTED TO CLARIFY. TEXTED DR. KAUFFMAN FOR CLARIFICATION. AWAITING RESPONSE. Addendum: 07/01/22 at 1137 by Agency 05 XAVIER RN RECEIVED TECT BACK TO CONTINUE PROTONIX AND DC PREVACID.
--- NOTE | 2022-07-01 11:18 | NUR ---
PATIENT COMPLAINING OF SOB. PATIENT RECEIVED MULTIPLE BREATHING TREATMENTS THROUGHOUT NIGHT, IS SITTING UPRIGHT AND WAS PLACED ON 6L NC WITH BUBBLER DURING NOC SHIFT. TEXTED DR. KAUFFMAN TO INFORM ABOUT AGITATION AND ANXIETY D/T SOB. NO PRN MEDS FOR AGITATION ON EMAR. AWAITING ORDERS FROM DOCTOR.
[2022-07-01 12:00] VITALS: BP 99/66
[2022-07-01] MEDS ORDERED: LORazepam 2 MG/ML VIAL IM/IVP PRN (12:00)
--- NOTE | 2022-07-01 12:07 | NUR ---
PATIENT GIVEN ATIVAN PRN FOR AGITATION. PATIENT LAID BACK IN BED WITH OU CLOSED AND BEGAN TO REST. WILL CONTINUE TO MONITOR.
[2022-07-01] MEDS: SKINTEGRITY HYDROGEL TP SCH (13:14)
[2022-07-01] MEDS: THERAHONEY GEL 42.5 GM TP SCH (13:15)
[2022-07-01] MEDS ORDERED: LORazepam 2 MG/ML VIAL IVP PRN (13:40)
--- NOTE | 2022-07-01 15:20 | NUR ---
PT IS VERY AGITATED AND REFUSED BREATHING TX EVEN THOUGH RN TOLD US HE WAS THE ONE REQUESTING THE TX. RN AWARE RT TRIED TO GIVE TX AND PT REFUSED AND COMBATIVE. WILL CONTINUE TO MONITOR.
--- NOTE | 2022-07-01 15:30 | NUR ---
PATIENT CONTINUES TO BE AGITATED AND REFUSING BREATHING TREATMENTS, REMOVING TELE BOX AND ATTEMPTING TO REMOVE IV TUBING. USED COMFORTING MEASURES TO HELP PATIENT RELAX. PATIENT RESTED IN BED AND APPEARED TO BE LESS AGITATED. COMPLAINED OF PAIN IN LEFT LEG 5/10. WILL MEDICATE ORDERED.
[2022-07-01] MEDS: MORPHINE SULFATE 4 MG/ML SYR IV PRN (15:39)
[2022-07-01 16:00] VITALS: BP 147/52
--- NOTE | 2022-07-01 16:00 | NUR ---
IV PUMP CONTINUOUSLY BEEPING. PT IS REFUSING TO BE CONNECTED TO FLUIDS AT THIS TIME. OFFERED TO MOVE TUBING TO RIGHT JUGULAR IV. PATIENT AND PATIENT'S COMPLAINING OF DISCOMFORT WHEN CONNECTED TO RIGHT JUGULAR. DISCONNECTED FROM FLUIDS AT THIS TIME. WILL ATTEMPT TO CONNECT LATER.
--- NOTE | 2022-07-01 18:21 | NUR ---
PT IS RESTING IN BED WITH OU CLOSED. IN CHAIR NEXT TO BED WITH OU CLOSED. NO VISIBLE S/S OF DISTRESS OR DISCOMFORT. WOKE PT UP AND HE STATED THAT HE STILL DOES NOT WANT TO BE CONNECTED TO IV MEDICATIONS AT THIS TIME. DENIES ANY PAIN OR SOB. CALL LIGHT IS WITHIN REACH, ALL NEEDS MET AT THIS TIME. WILL ENDORSE TO NOC SHIFT.
--- NOTE | 2022-07-01 20:35 | NUR ---
RT REDUCED O2 TO 5L. O2 SAT TO REMAIN OVER 94%
[2022-07-01] MEDS: SENNA 8.6 MG TAB PO SCH (20:45)
--- NOTE | 2022-07-01 20:54 | NUR ---
ATIVAN GIVEN 1 MG IVP. RESTLESSNESS. PT ATTEMPTING TO GET OOB AND "GO".
[2022-07-01 20:56] VITALS: BP 141/68
[2022-07-01] MEDS: PIPERACILLIN/TAZOBACTAM 3.375 GM in DEXTROSE 5% 50 ML IV SCH (21:04)
[2022-07-02] VITALS: BP 132/69
[2022-07-02] MEDS: MORPHINE SULFATE 4 MG/ML SYR IV PRN (01:20)
[2022-07-02] MEDS: Z-GUARD PASTE TP SCH ×2 (01:21→12:18)
--- NOTE | 2022-07-02 01:21 | NUR ---
MORPHINE 4MG FOR PAIN 01/19 PER FLACC. SCALE.
--- NOTE | 2022-07-02 01:51 | NUR ---
MORPHINE 4 MG EFFECTIVE IN PAIN RELIEF PER FLACC SCALE 0/10. PT SLEEPING SOUNDLY. CONTINUES AT BEDSIDE.
[2022-07-02 04:00] VITALS: BP 159/88
[2022-07-02] MEDS: PIPERACILLIN/TAZOBACTAM 3.375 GM in DEXTROSE 5% 50 ML IV SCH ×2 (05:00→12:22)
--- NOTE | 2022-07-02 06:00 | NUR ---
PT RESTING WELL. NO ACUTE DISTRESS NOTED. CONT TO MONITOR AND ASSIST NEEDED.
[2022-07-02] MEDS: BLOOD GLUCOSE MONITORING 1 DEV DEV FS SCH ×4 (06:49→21:03)
[2022-07-02] MEDS: INSULIN LISPRO SLIDING SCALE 100 UNITS/ML VIAL SUBQ PRN ×2 (06:50→21:02)
--- NOTE | 2022-07-02 07:30 | NUR ---
HAND-OFF REPORT TO A.M NURSES ANSLEY AND PRISCA. PT STABLE AND DRESSING REMAINS INTACT. NO ACTIVE BLEEDING NOTED THIS SHIFT. RELINQUISHED CARE OF PT AT THIS TIME.
--- NOTE | 2022-07-02 07:30 | NUR ---
ENDORSED PATIENT FROM CENTRAL SUPPLY WORKER NURSE.VITALS ARE STABLE. AT BEDSIDE.POC DISCUSSED.ALL SAFETY MEASURES IN PLACE.WILL CONTINUE TO MONITOR.
--- NOTE | 2022-07-02 07:30 | NUR ---
RECEIVED REPORT FROM SUMMER SESSIONS DIRECTOR NURSE. PT STABLE, AT BEDSIDE. ALL SAFETY MEASURES IN PLACE. WILL CONTINUE TO MONITOR UNDER THE CARE OF XAVIER JONES
[2022-07-02 08:00] VITALS: BP 137/77
[2022-07-02 08:37] LABS: BASOPHILS # (AUTO) 0.1 K/uL (0.00-0.22); BASOPHILS % (AUTO) 1.6 % (0.0-2.0); EOSINOPHILS # (AUTO) 0.3 K/uL (0-0.4); EOSINOPHILS % (AUTO) 3.4 % (0.0-4.0); HEMATOCRIT 26.8 % (36-52); HEMOGLOBIN 8.9 g/dL (12.0-18.0); LYMPHOCYTES # (AUTO) 1.3 K/uL (2.0-11.5); LYMPHOCYTES % (AUTO) 15.4 % (20.5-51.1); MEAN CORPUSCULAR HEMOGLOBIN 29 pg (27-31); MEAN CORPUSCULAR HGB CONC 33 g/dL (33-37); MEAN CORPUSCULAR VOLUME 88.2 fL (80-94); MONOCYTES # (AUTO) 0.6 K/uL (0.8-1.0); MONOCYTES % (AUTO) 6.7 % (1.7-9.3); NEUTROPHILS # (AUTO) 6.1 K/uL (1.8-7.7); NEUTROPHILS % (AUTO) 72.9 % (42.2-75.2); PLATELET COUNT (AUTO) 493 K/uL (140-450); RED BLOOD CELL COUNT(AUTO) 3.04 MIL/uL (4.20-6.10); RED CELL DISTRIBUTION WIDTH 17.6 % (11.6-13.7); WHITE BLOOD COUNT (AUTO) 8.4 K/uL (4.8-10.8)
[2022-07-02 08:54] LABS: ANION GAP 9.9 (8-16); CARBON DIOXIDE 28.1 mmol/L (21-32); CREATININE 0.8 mg/dL (0.6-1.3)
[2022-07-02] MEDS: lisinopriL 5 MG TAB PO SCH (09:00)
[2022-07-02] MEDS: FUROSEMIDE 20 MG/2 ML VIAL IVP SCH ×3 (09:00→16:29)
--- NOTE | 2022-07-02 09:04 | NUR ---
RECEIVED ON HUMIDIFIED SUPPLEMENTAL OXYGEN 5 LPM VIA NC SATURATION 100% TITRATED FIO2 TO 4 LPM ANSLEY/RN NOTIFIED
[2022-07-02] MEDS: TAMSULOSIN 0.4 MG CAP PO SCH (09:22)
[2022-07-02] MEDS: SUCRALFATE 1 GM TAB PO SCH ×2 (09:22→20:36)
[2022-07-02] MEDS: PANTOPRAZOLE 40 MG INJ VIAL IVP SCH ×2 (09:22→20:44)
[2022-07-02] MEDS: METOPROLOL SUCCINATE 50 MG TABER PO SCH (09:23)
[2022-07-02] MEDS: DOCUSATE SODIUM 100 MG GELCAP PO SCH (09:23)
[2022-07-02] MEDS: HYDROmorphone 1 MG/ML AMP IVP PRN ×3 (09:24→20:21)
--- NOTE | 2022-07-02 09:30 | NUR ---
ALL FEDE MEDICATION ADMINISTERED PER MD ORDER BY XAVIER AGGARWAL. PRN PAIN MEDICATION ADMINISTERED FOR 8/10 PAIN/ AT BEDSIDE. ALL NEEDS ARE CURRENTLY BEING MET. ALL SAFETY MEASURES IN PLACE, CALL LIGHT WITHIN REACH. WILL CONTINUE TO MONITOR.
[2022-07-02 12:00] VITALS: BP 137/110
[2022-07-02] MEDS: SKINTEGRITY HYDROGEL TP SCH (12:23)
[2022-07-02] MEDS: THERAHONEY GEL 42.5 GM TP SCH (12:23)
--- NOTE | 2022-07-02 12:48 | NUR ---
DR DIAZ AT BEDSIDE, AWARE OF WOUND CULTURE. DISCUSSING RESULTS WITH
--- NOTE | 2022-07-02 13:18 | NUR ---
PATIENT C/O SOB HHN PRN THERAPY GIVEN AT THIS TIMET SATURATION 96% ON HUMIDIFIED SUPPLEMENTAL OXYGEN AT 4 LPM VIA NC POST HHN THERAPY TITRATED FIO2 TO 3 LPM ANSLEY/XAVIER NOTIFIED
[2022-07-02] MEDS: ALBUTEROL 0.083% 2.5 MG/3 ML NEBU INH PRN (13:20)
[2022-07-02 16:00] VITALS: BP 156/69
--- NOTE | 2022-07-02 16:30 | NUR ---
FULL DRESSING CHANGE COMPLETED, SEE WOUND ASSESSMENT. PT MEDICATED PER MD ORDER PRIOR TO CLEANING. PT REMAINED STABLE THROUGHOUT. PERSONNEL HYGIENE, RAUL CARE, AND NEW SHEETS PROVIDED. PT STABLE WITH SATURATIONS AT 94%. ALL SAFETY MEASURE IN PLACE, CALL LIGHT WITHIN REACH. WILL CONTINUE TO MONITOR.
--- NOTE | 2022-07-02 18:42 | NUR ---
ALL NEEDS HAVE BEEN MET THROUGHOUT THE SHIFT, ALL FAMILY QUESTIONS HAVE BEEN ANSWERED. PT HAS REMAINED STABLE. ALL SAFETY MEASURES IN PLACE, CALL LIGHT WITHIN REACH. WILL CONTINUE TO MONITOR.
--- NOTE | 2022-07-02 19:30 | NUR ---
REPORT RECEIVED FRO DAY SHIFT NURSE . DR. DIAZ DISCUSSED POSSIBLE ABOVE THE KNEE AMPUTATION WITH FAMILY. ABT CHANGED FROM ZOSYN TO MERREM. DRESSING WAS CHANGED. NO BM IN 8 DAYS. INCREASED BM MEDS. MEDICATEDX2 WIT DILAUDID. CONT TO MONITOR AND PROVIDE COMFORT MEASURES.
[2022-07-02 20:00] VITALS: BP 157/84
--- NOTE | 2022-07-02 20:28 | NUR ---
DILAUDID 1 MG FOR PAIN LLE 6/10 STATES BRING PAIN DOWN TO 2/10.
[2022-07-02] MEDS: SENNA 8.6 MG TAB PO SCH (20:36)
--- NOTE | 2022-07-02 20:55 | NUR ---
DILAUDID EFFECTIVE. 0/10 FLACC PT SLEEPING SOUNDLY.
--- NOTE | 2022-07-02 21:00 | NUR ---
MEDICATED WITH DILAUDID FOR LEFT LEG PAIN 02/19. MORE DRESSING APPLIED TO PROXIMAL END PT BENT LEG, DRESSING SLIPPED DOWN EXPOSING WOUND. SON AND PT VOICING TO ME CONCERNS ABOUT PT GOING HOME TO RECEIVE CONT'D CARE WITH VISITING NURSE TO HANG ANTIBIOTICS AND FOREGOING ANY FURTHER AMPUTATION OF LEFT LOWER EXTREMITY. SON VOICED C/O "ORIGINAL DRESSING NOT REMOVED FROM MY DAD'S LEG AT THAT OTHER PLACE UNTIL 12 DAYS HAD GONE BY...WE CAN DO BETTER THAN THAT AT HOME". INSTRUCTED SON AND TO DISCUSS CONCERNS WITH MD AND MAKE ALL ATTEMPTS TO COOPERATE WITH HIS RECOMMENDATIONS WORKING WITHIN THE CONFINES OF HIS INSURANCE ALL WHILE KEEPING IN MIND HIS DAD'S BEST INTEREST TO BE HOME IN HIS OWN ENVIRONMENT FOR HEALING. STATED HE WOULD. REASSURED FAMILY OF PT RIGHTS AND THEIR COMFORT TO EXERCISE THEM ACCORDING TO THEIR DICTATES. CONTINUE TO MONITOR AND ASSIST.
[2022-07-02] MEDS ORDERED: MEROPENEM 1,000 MG VIAL IV ONE (21:03)
[2022-07-02] MEDS: MEROPENEM 1,000 MG in NACL 0.9% 50 ML IV SCH (21:24)
[2022-07-03] VITALS: BP 124/74
[2022-07-03] MEDS: Z-GUARD PASTE TP SCH ×2 (01:00→12:14)
[2022-07-03] MEDS: HYDROmorphone 1 MG/ML AMP IVP PRN ×5 (01:49→20:36)
--- NOTE | 2022-07-03 01:49 | NUR ---
DILAUDID 0.5 MG FOR LEFT LEG PAIN. 12/19.
--- NOTE | 2022-07-03 02:30 | NUR ---
PT S LEEPING SOUNDLY. DILAUDID EFFECTIVE 0/10
[2022-07-03 04:00] VITALS: BP 136/88
[2022-07-03] MEDS: MEROPENEM 1,000 MG in NACL 0.9% 50 ML IV SCH ×3 (05:00→20:38)
[2022-07-03] MEDS ORDERED: MEROPENEM 1,000 MG VIAL IV ONE (05:20)
--- NOTE | 2022-07-03 07:15 | NUR ---
RFA IV DISLODGED. PT ALLOWING USE OF RIJ WITHOUT HESITATION. ENDORSED TO Yessy NURSE.
--- NOTE | 2022-07-03 07:15 | NUR ---
MEDICATED WIT DILAUDID 0.5 MG. FOR LEFT LEG PAIN. REPORT TO ON COMING RN. ENDORSED PT AND FAMILY VOICED THEIR DECISION TO MOVE PT FROM HOSPITAL TO HOME WITHOUT FURTHER AMPUTATION OF LLE. DRESSING REINFORCED AND EXTENDED ON PROXIMAL. RELINQUISHED CARE OF PT AT THIS TIME.
--- NOTE | 2022-07-03 07:30 | NUR ---
ENDORSED PATIENT FROM MEDICAL RECORD CODER NURSE.VITALS ARE STABLE. AT BEDSIDE.POC DISCUSSED.ALL SAFETY MEASURES IN PLACE.WILL CONTINUE TO MONITOR
[2022-07-03] MEDS: BLOOD GLUCOSE MONITORING 1 DEV DEV FS SCH ×4 (07:40→20:34)
[2022-07-03 08:00] VITALS: BP 135/78
--- NOTE | 2022-07-03 09:24 | NUR ---
FEDE MEDICATION ADMINISTERED PER MD ORDER BY XAVIER AGGARWAL, PRECEPTOR AT BEDSIDE, PT TOLERATED ADMINISTRATION. AT BEDSIDE. FULL ASSESSMENT COMPLETE. NO S/S OF DISTRESS AT THIS TIME. ALL SAFETY MEASURES IN PLACE, CALL LIGHT WITHIN REACH. WILL CONTINUE TO MONITOR.
[2022-07-03] MEDS: FUROSEMIDE 20 MG/2 ML VIAL IVP SCH ×3 (09:33→17:04)
[2022-07-03] MEDS: PANTOPRAZOLE 40 MG INJ VIAL IVP SCH ×2 (09:33→20:34)
[2022-07-03] MEDS: SUCRALFATE 1 GM TAB PO SCH ×2 (09:34→20:48)
[2022-07-03] MEDS: LACTULOSE 20 GM/30 ML UDC PO SCH (09:35)
[2022-07-03] MEDS: SENNA 8.6 MG TAB PO SCH ×2 (09:35→20:35)
[2022-07-03] MEDS: DOCUSATE SODIUM 100 MG GELCAP PO SCH (09:35)
[2022-07-03] MEDS: TAMSULOSIN 0.4 MG CAP PO SCH (09:35)
[2022-07-03] MEDS: METOPROLOL SUCCINATE 50 MG TABER PO SCH (09:36)
[2022-07-03] MEDS: lisinopriL 5 MG TAB PO SCH (09:36)
--- NOTE | 2022-07-03 10:28 | NUR ---
RECEIVED ON HUMIDIFIED SUPPLEMENTAL OXYGEN AT 3 LPM VIA NC SATURATION 98% HR 82 RR 20 NO EVIDENCE FOR PULMONARY DISTRESS NOTED BREATH SOUNDS CLEAR BILATERAL EQUAL CHEST RISE AND GOOD AERATION THROUGHOUT BILATERAL LUNG ROCA AIRWAY PATENT TITRATED FIO2 TO 2 LPM ANSLEY/XAVIER NOTIFIED
--- NOTE | 2022-07-03 11:27 | NUR ---
MD AT BEDSIDE DISCUSSING PATIENTS OPTIONS WITH FAMILY. FAMILY REQUESTING TO TAKE PT HOME, AND REFUSING ANY SURGICAL INTERVENTIONS. FAMILY STATED THEY WILL WAIT TILL CASE MANAGEMENT CAN DISCUSS INSURANCE OPTIONS. ALL SAFETY MEASURES IN PLACE, CALL LIGHT WITHIN REACH.
[2022-07-03] MEDS: INSULIN LISPRO SLIDING SCALE 100 UNITS/ML VIAL SUBQ PRN (11:49)
[2022-07-03 12:00] VITALS: BP 154/80
[2022-07-03] MEDS: THERAHONEY GEL 42.5 GM TP SCH (12:13)
[2022-07-03] MEDS: SKINTEGRITY HYDROGEL TP SCH (12:13)
--- NOTE | 2022-07-03 15:00 | NUR ---
WOUND CARE ACCORDING TO DOC ORDER WITH THE HELP OF RN PRECEPTOR ANSLEY,AND LATASHA.CLEANED WITH NS ,PAT DRY APPLIED HYDROGEL,OIL EMULSIONS ,AND ABD PADS,SECURED WITH KERLIX ROLL AND TAPED.COMPLAINED ABOUT PAIN.ADMINISTERED PAIN MEDICATIONS PRN.WILL CONTINUE TO MONITOR.[id number]
[2022-07-03] MEDS: MORPHINE SULFATE 2 MG/ML SYR IVP PRN (15:12)
--- NOTE | 2022-07-03 15:27 | NUR ---
WOUND CARE PREFORMED BY XAVIER GARCIA CNA AND PRECEPTOR PER MD ORDER. SEE WOUND ASSESSMENT. ALL NEEDS HAVE BEEN MET AT THIS TIME. PRN PAIN MEDICATION ADMINISTERED. ALL SAFETY MEASURES IN PLACE, CALL LIGHT WITHIN REACH. WILL CONTINUE TO MONITOR.
[2022-07-03 16:00] VITALS: BP 143/75
--- NOTE | 2022-07-03 18:40 | NUR ---
ALL NEEDS HAVE BEEN MET THROUGH OUT THE SHIFT, ALL SAFETY MEASURES IN PLACE. WILL CONTINUE TO MONITOR. PT WILL BE ENDORSED TO ELECTROCARDIOGRAM TECHNICIAN NURSE AT 1900.
--- NOTE | 2022-07-03 19:30 | NUR ---
HANDOFF REPORT RECEIVED FROM OFF GOING NURSES ANSLEY AND JASEN. REPORTED:DR KAUFFMAN MET WITH FAMILY TO DISCUSS PLAN OF CARE FOR PT HE IS AWARE FAMILY INTERESTED IN TAKING PT HOME AND FOREGOING ANY FURTHER SURGICAL INTERVENTION. FAMILY WILL MEET WITH CASE MANAGEMENT TOMORROW IN MOVING FORWARD ITH THER DESIRE TO TAKE PT HOME IN A MANNER THAT IS "NOT AMA" BUT "WORKING WITH MD" BUT FROM HOME INSTEAD. PT RECEIVED RELAXED AND SLEEING PRESENTLY HAVING BEEN MEDICATED WITH DILAUDID AT 1646. CONT TO ASSIST NEEDED, MEDS SCHEDULED AND PROVIDE COMFORT MEASURES.
[2022-07-03 20:00] VITALS: BP 123/107
--- NOTE | 2022-07-03 21:06 | NUR ---
MEDICATED FOR LLE PAIN 02/19 AT 2035 WITH DILAUDID 0.5MG.IVP. EFFECTIVE IN PAIN RELIEF. FLACC 0/10. SLEEPING SOUNDLY
[2022-07-04] VITALS: BP 165/37
--- NOTE | 2022-07-04 01:49 | NUR ---
MEDICATED WITH DILAUDID 0.5MG FOR PAIN 02/19. SEEING THAT TIME WAS NOT TRANSMITTED. WHEN ATTEMPTING TO RECORD CORRECT TIME OF 0149, INSTEAD THE PRESENT TIME WAS RECORDED. DID AN "UNDO" FUNCTION ERASE THAT TIME.
--- NOTE | 2022-07-04 01:49 | NUR ---
MEDICATED FOR LLE PAIN 02/19 WITH DILAUDID 0.5MG
--- NOTE | 2022-07-04 02:19 | NUR ---
REASSESSMENT OF DILAUDID 0.5 MG EFFECTIVENESS. PT SLEEPING SOUNDLY MED EFFECTIVE. 0/10 FLACC.
[2022-07-04 04:00] VITALS: BP 150/83
[2022-07-04] MEDS: MEROPENEM 1,000 MG in NACL 0.9% 50 ML IV SCH ×3 (05:00→21:14)
--- NOTE | 2022-07-04 05:54 | NUR ---
PT PULLED OUT REJ. NO BLEEDING OR HEMATOMA AT SITE. WILL CONT TO CHECK SITE.
[2022-07-04 06:00] LABS: BASOPHILS # (AUTO) 0.1 K/uL (0.00-0.22); BASOPHILS % (AUTO) 2.1 % (0.0-2.0); EOSINOPHILS # (AUTO) 0.2 K/uL (0-0.4); EOSINOPHILS % (AUTO) 3.3 % (0.0-4.0); HEMOGLOBIN 8.5 g/dL (12.0-18.0); LYMPHOCYTES # (AUTO) 1.4 K/uL (2.0-11.5); LYMPHOCYTES % (AUTO) 20.5 % (20.5-51.1); MEAN CORPUSCULAR HEMOGLOBIN 29 pg (27-31); MEAN CORPUSCULAR HGB CONC 33 g/dL (33-37); MEAN CORPUSCULAR VOLUME 89.9 fL (80-94); MONOCYTES # (AUTO) 0.6 K/uL (0.8-1.0); MONOCYTES % (AUTO) 8.4 % (1.7-9.3); NEUTROPHILS # (AUTO) 4.6 K/uL (1.8-7.7); NEUTROPHILS % (AUTO) 65.7 % (42.2-75.2); PLATELET COUNT (AUTO) 508 K/uL (140-450); RED CELL DISTRIBUTION WIDTH 17.7 % (11.6-13.7)
[2022-07-04] MEDS: Z-GUARD PASTE TP SCH ×2 (06:25→13:00)
[2022-07-04 06:34] LABS: ANION GAP 6.2 (8-16); CARBON DIOXIDE 32.4 mmol/L (21-32); CREATININE 0.9 mg/dL (0.6-1.3); POTASSIUM 3.6 mmol/L (3.5-5.1)
--- NOTE | 2022-07-04 07:30 | NUR ---
HAND-OFF REPORT TO A.M. NURSE. ENDORSED PT PULLED OUT REJ, AND THAT PT FAMILY WANT TO CARE OF PT AT HOME. WAITING TO MEET WITH [employer] ASSOCIATE. PT AND FAMILY WANT TO BE DISCHARGE WITH [facility] AND NOT GO AMA. INSTRUCTED POSSIBLE PICC LINE PLACEMENT. RELINQUISHED CARE TO [facility].
[2022-07-04 08:00] VITALS: BP 156/80
--- NOTE | 2022-07-04 08:00 | NUR ---
RECEIVED PATIENT IN BED, A/OX4, NOT IN ANY FPRM OF DISTRESS, PATIENT PULLED IV ACCESS, ANNABEL FREED MD MADE AWARE THAT PATIENT DOES NOT HAVE ANY IV ACCESS, ORDERED FOR PICC LINE PLACEMENT, PLAN OF CARE DISCUSSED WITH PATIENT AND FAMILY, AGREEABLE.
[2022-07-04] MEDS: BLOOD GLUCOSE MONITORING 1 DEV DEV FS SCH ×4 (08:25→21:20)
[2022-07-04] MEDS: HYDROmorphone 1 MG/ML AMP IVP PRN (08:41)
[2022-07-04] MEDS: LACTULOSE 20 GM/30 ML UDC PO SCH (09:00)
[2022-07-04] MEDS: DOCUSATE SODIUM 100 MG GELCAP PO SCH (09:00)
[2022-07-04] MEDS: SENNA 8.6 MG TAB PO SCH ×2 (09:00→21:00)
[2022-07-04] MEDS: FUROSEMIDE 20 MG/2 ML VIAL IVP SCH ×3 (09:00→17:00)
[2022-07-04] MEDS: PANTOPRAZOLE 40 MG INJ VIAL IVP SCH (09:00)
[2022-07-04] MEDS: SUCRALFATE 1 GM TAB PO SCH ×2 (10:26→21:14)
[2022-07-04] MEDS: METOPROLOL SUCCINATE 50 MG TABER PO SCH (10:26)
[2022-07-04] MEDS: lisinopriL 10 MG TAB PO SCH (10:27)
[2022-07-04] MEDS: TAMSULOSIN 0.4 MG CAP PO SCH (10:27)
--- NOTE | 2022-07-04 11:55 | NUR ---
WOUND CARE RE-EVALUATION NOTE: S/P DEBRIDEMENT LEFT STUMP AND LEFT LATERAL THIGH WOUND EXTENDED TO POSTERIOR THIGH WITH KLEBSIELLA PNEUMONIAE, ESBL INFECTION. DUE TO LARGE DRAINAGE, WILL CHANGE TX WITH ALGINATE DRESSING. POC DISCUSSED WITH PRIMARY RN W[place]. POC DISCUSSED WITH AND DAUGHTER GARLAND WHO SPEAK IN MALIAN AT BEDSIDE. RECOMMEND SNF FOR WOUND CARE. PER FAMILY NO SNF/ALTC. FAMILY WANT TO TAKE PT. HOME. WOUND CARE TEACHING DONE WITH AND DAUGHTER WITH WOUND AND SKIN CARE PLANS DISCUSSED. BOTH AND DAUGHTER VERBALIZES UNDERSTANDING. -LEFT STUMP SURGICAL WOUND [id number] WOUND BED 50% PINK TISSUE AND 50% SCATTERED YELLOW SLOUGH TISSUE, LARGE AMOUNT SEROUS DRAINAGE, WOUND EDGE FLAT DETACHED TO 12 O'CLOCK DIRECTION 0.5CM UNDERMINING, NO ODOR AFTER RINSE WITH NS. RAUL WOUND SKIN PALE IN COLOR, PAIN 2/10 -LEFT LATERAL THIGH WOUND EXTENDED TO POSTERIOR THIGH SURGICAL WOUND [id number] IRREGULAR SHAPE WITH 100% YELLOW/BROWN SLOUGH TISSUE, SCATTERED SHINNY TENDER AND PINK MUSCLE EXPOSE, LARGE AMOUNT SEROUS DRAINAGE, NO ODOR AFTER AREA RINSE, RAUL WOUND SKIN MOIST AND INTACT, WOUND EDGE FLAT AND NO UNDERMINING, NO TUNNEL WOUND. PAIN 2/10. 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 RECOMMENDATIONS: -RINSE LEFT STUMP AND LEFT LEG WITH NS, PAT DRY, APPLY ALGINATE DRESSING, COVER WITH ABD PAD, WRAP WITH KERLIX ROLLS AND SECURED WITH TAPE QD AND PRN IF SOILING -CLEANSE RIGHT BUTTOCK WITH NS, PAT DRY, APPLY Z GUARD AND COVER WITH DRY DRESSING QD AND PRN IF SOILING -OFFLOAD SACRALCOCCYX, LEFT STUMP AND RIGHT HEEL WITH PILLOWS -RAUL-CARE Q2H KEEP SKIN DRY AND CLEAN -POSITIONING: TURN AND REPOSITION PATIENT Q 2H OR SOONER USE PILLOWS TO KEEP BONY PROMINENCES FROM DIRECT CONTACT WITH SURFACES USE REPOSITIONING WEDGES TO PROVIDE 30-DEGREE ANGLE FOR SIDE LYING POSITIONS OFFLOADING OR FOAM DRESSING TO ALL TUBING TO PREVENT MEDICAL DEVICES RELATED PRESSURE INJURY -RE-EVALUATING AND MANAGING INCONTINENCE MONITOR SKIN CONDITION DURING POSITION CHANGE DO NOT MASSAGE REDNESS, BONY PROMINENCES FREQUENT RAUL-CARE AND PROVIDE BARRIER CREAMS PRN IF SOILING MOISTURE CONTROL BY OFFER BED TAYLOR/URINAL /ABSORBENT PAD TO WICK AND HOLD MOISTURE KEEP SKIN DRY AND PROTECT FROM FRICTION -MANAGE FRICTION/SHEAR/MOBILITY KEEP HOB AT THE LOWEST LEVEL OF ELEVATION NO MORE THAN 30 DEGREE UNLESS OTHERWISE CONTRAINDICATED USE LIFT SHEET OR TRANSFER DEVICE TO MOVE PATIENT AND PREVENT LATERAL SHEER. PROTECT HEELS, ELBOWS BONY PROMINENCES WITH SKIN BERRIES OR FOAM DRESSING IF EXPOSED TO FRICTION OFFLOAD BILATERAL HEELS BY PLACING PILLOWS UNDER CALVES AT ALL TIMES, UNLESS OTHERWISE CONTRAINDICATED -PRESSURE REDISTRIBUTION SURFACE THERAPY ALIYA ISOFLEX MATTRESS -NUTRITION: PLEASE FOLLOW RD RECOMMENDATIONS AND OFFER NUTRITION SUPPLEMENTS IF ORDERED.
[2022-07-04 12:00] VITALS: BP 157/78
[2022-07-04] MEDS: HYDROcodone/APAP 5/325 MG 1 TAB TAB PO PRN (12:05)
[2022-07-04] MEDS: INSULIN LISPRO SLIDING SCALE 100 UNITS/ML VIAL SUBQ PRN ×3 (12:39→21:00)
[2022-07-04] MEDS: ALGINATE DRESSING MC SCH (13:00)
[2022-07-04] MEDS: GAUZE TP SCH (13:00)
--- NOTE | 2022-07-04 14:00 | NUR ---
PICC LINE WAS PLACED TO RIGHT UPPER ARM, PATIENT TOLERATED WELL. NO OTHER COMPLAINS AT THIS TIME.
[2022-07-04 16:00] VITALS: BP 158/80
[2022-07-04] MEDS: MORPHINE SULFATE 2 MG/ML SYR IVP PRN (18:24)
--- NOTE | 2022-07-04 19:30 | NUR ---
RECEIVED REPORT FROM DAY SHIFT NURSE FOR CONTINUITY OF CARE. PATIENT IS A&O X4. PATIENT IS ON NC 2L; BREATHING IS SYMMETRICAL RISE AND FALL OF CHEST. PT HAS RIGHT UPPER ARM PICC, SALINE LOCKED. IS IN ROOM WITH PATIENT,PER DAY SHIFT NURSE. 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 LEFT KNEE IS WRAPPED IN A DRESSING; DRESSING IS DRY AND INTACT.ALL PRECAUTIONS IN PLACE. CALL LIGHT WITHIN REACH. WILL CONTINUE TO MONITOR.
[2022-07-04 20:00] VITALS: BP 132/96
[2022-07-04] MEDS: PANTOPRAZOLE 40 MG TABEC PO SCH (21:13)
[2022-07-04] MEDS ORDERED: MELATONIN 3 MG TAB PO PRN (21:55)
--- NOTE | 2022-07-04 22:20 | NUR ---
BLOOD TRANSFUSION STARTED.NO S/SX OF ACUTE REACTION.VITALS ARE STABLE. WILL CONTINUE TO MONITOR.
--- NOTE | 2022-07-04 23:55 | NUR ---
PT ASLEEP. NO S/SX OF DISTRESS NOTED. BREATHING EVEN AND UNLABORED. ALL PRECAUTIONS IN PLACE. WILL CONTINUE TO MONITOR.
[2022-07-05] VITALS: BP 144/89
[2022-07-05] MEDS: MORPHINE SULFATE 2 MG/ML SYR IVP PRN (00:42)
[2022-07-05] MEDS: Z-GUARD PASTE TP SCH ×2 (01:00→13:00)
[2022-07-05 04:00] VITALS: BP 154/73
[2022-07-05] MEDS: HYDROcodone/APAP 5/325 MG 1 TAB TAB PO PRN (05:44)
[2022-07-05] MEDS: MEROPENEM 1,000 MG in NACL 0.9% 50 ML IV SCH ×2 (05:44→13:00)
[2022-07-05] MEDS: BLOOD GLUCOSE MONITORING 1 DEV DEV FS SCH ×3 (05:50→16:30)
[2022-07-05 06:05] LABS: BASOPHILS # (AUTO) 0.1 K/uL (0.00-0.22); BASOPHILS % (AUTO) 1.2 % (0.0-2.0); EOSINOPHILS # (AUTO) 0.2 K/uL (0-0.4); HEMATOCRIT 26.9 % (36-52); HEMOGLOBIN 9.1 g/dL (12.0-18.0); LYMPHOCYTES # (AUTO) 1.6 K/uL (2.0-11.5); LYMPHOCYTES % (AUTO) 16.9 % (20.5-51.1); MEAN CORPUSCULAR HEMOGLOBIN 30 pg (27-31); MEAN CORPUSCULAR HGB CONC 34 g/dL (33-37); MEAN CORPUSCULAR VOLUME 87.5 fL (80-94); MONOCYTES # (AUTO) 0.8 K/uL (0.8-1.0); MONOCYTES % (AUTO) 8.2 % (1.7-9.3); NEUTROPHILS # (AUTO) 6.8 K/uL (1.8-7.7); NEUTROPHILS % (AUTO) 71.7 % (42.2-75.2); PLATELET COUNT (AUTO) 471 K/uL (140-450); RED BLOOD CELL COUNT(AUTO) 3.07 MIL/uL (4.20-6.10); RED CELL DISTRIBUTION WIDTH 17.4 % (11.6-13.7); WHITE BLOOD COUNT (AUTO) 9.5 K/uL (4.8-10.8)
[2022-07-05 06:17] LABS: ANION GAP 9.2 (8-16); CARBON DIOXIDE 30.4 mmol/L (21-32); CREATININE 0.9 mg/dL (0.6-1.3); POTASSIUM 3.6 mmol/L (3.5-5.1)
[2022-07-05 08:00] VITALS: BP 142/60
--- NOTE | 2022-07-05 08:05 | NUR ---
PATIENT TRANSPORTED TO OR. STABLE AT THIS TIME
[2022-07-05] MEDS ORDERED: BUPIVACAINE-MPF 0.25% 30 ML VIAL INJ ONE (08:17)
[2022-07-05] MEDS ORDERED: fentaNYL citrate 0.05 MG/ML VIAL ONE (08:45)
[2022-07-05] MEDS ORDERED: PROPOFOL 200 MG/20 ML VIAL IV ONE (08:46)
--- NOTE | 2022-07-05 09:55 | NUR ---
PATIENT BACK FROM OR. STABLE VITAL SIGNS. NO COMPLAINTS AT THIS TIME.
[2022-07-05 10:30] VITALS: BP 150/63
[2022-07-05] MEDS: LACTULOSE 20 GM/30 ML UDC PO SCH (10:30)
[2022-07-05] MEDS: FUROSEMIDE 20 MG/2 ML VIAL IVP SCH ×3 (10:30→17:00)
[2022-07-05] MEDS: lisinopriL 10 MG TAB PO SCH (10:30)
[2022-07-05] MEDS: PANTOPRAZOLE 40 MG TABEC PO SCH (10:30)
[2022-07-05] MEDS: TAMSULOSIN 0.4 MG CAP PO SCH (10:30)
[2022-07-05] MEDS: DOCUSATE SODIUM 100 MG GELCAP PO SCH (10:30)
[2022-07-05] MEDS: METOPROLOL SUCCINATE 50 MG TABER PO SCH (10:30)
[2022-07-05] MEDS: SENNA 8.6 MG TAB PO SCH (10:30)
[2022-07-05] MEDS: SUCRALFATE 1 GM TAB PO SCH (10:30)
[2022-07-05] MEDS: INSULIN LISPRO SLIDING SCALE 100 UNITS/ML VIAL SUBQ PRN ×2 (12:08→17:38)
--- NOTE | 2022-07-05 12:28 | NUR ---
DC PLANNING: CM, ZHEN AND CHARGE NURSE MET WITH PATIENT AND PT'S AND DAUGHTER ZHEN MEIJAA DISCUSSED THE ISSUES AND CONCERN WITH PT'S EXPLAINED AND ANSWERED ALL QUESTION. PER REQUESTED TO BE DISCHARGED HOME WITH HOSPICE. NOTIFIED DR BURNETT AND ORDERED HOSPICE EVALUATION. CM TO FOLLOW Addendum: 07/05/22 at 1419 by Mayi Crowe RN DC PLANNING: FAXED THE PAPER WORK TO [facility] [phone] SPOKE WITH NAOMIE AT [facility] [phone] EVALUATED PATIENT AND SPOKE WITH PT'S AND SHE SIGNED THE HOSPICE. PER FAMILY TO BE DISCHARGED HOME WITH HOSPICE. CHERI AKBAR WILL ARRANGED TRANSPORT AND CALL US BACK. CM TO FOLLOW
[2022-07-05] MEDS: ALGINATE DRESSING MC SCH (13:00)
[2022-07-05] MEDS: GAUZE TP SCH (13:00)
[2022-07-05] MEDS: MORPHINE SULFATE 4 MG/ML SYR IV PRN (14:22)
[2022-07-05] MEDS ORDERED: LACT10SO11 PO (14:28)
[2022-07-05] MEDS ORDERED: SUCR1TAB56 PO (14:28)
[2022-07-05] MEDS ORDERED: PANT40EC56 PO (14:28)
[2022-07-05 14:30] VITALS: BP 154/73
--- NOTE | 2022-07-05 15:36 | NUR ---
07/05/22 RD FOLLOW UP COMPLETED PLEASE REFER TO NUTRITION ASSESSMENT UNDER CARE ACTIVITY FOR ESTIMATED NUTRITIONAL NEEDS. 1. CONTINUE CCHO 60 GM DIET TOLERATED 2. RECOMMEND GLUCERNA BID TO HELP INCREASE PO INTAKE - PROVIDES 440 KCAL AND 20 GM PROTEIN DAILY 3. MONITOR PO INTAKE AND NUTRITION RELATED LAB VALUES 4. RD TO FOLLOW-UP 3-5 DAYS, MODERATE RISK REVIEWED BY BEBE FERRO RD
[2022-07-05 16:00] VITALS: BP 136/60
--- NOTE | 2022-07-05 20:10 | NUR ---
PT IS STABLE. NO S/SX OF DISTRESS.PT IS DISCHARGED TO HOME HOSPICE. PT WAS PICKED UP BY EMT WITH .
== END 2022-07-05 20:10 | disposition hospice, home (50) | DRG 463 ==
LOC: MED 17:40 → MTU 19:32 → MMU 06-27 06:53
PROVIDERS: ADMIT Internal Medicine; ATTEND Internal Medicine
PROC: 30233N1 Transfusion of Nonautologous Red Blood Cells into Peripheral Vein, Percutaneous Approach (ICD-10-PCS; 2022-06-27)
PROC: 0DB48ZX Excision of Esophagogastric Junction, Via Natural or Artificial Opening Endoscopic, Diagnostic (ICD-10-PCS; 2022-06-29)
PROC: 0DB68ZX Excision of Stomach, Via Natural or Artificial Opening Endoscopic, Diagnostic (ICD-10-PCS; 2022-06-29)
PROC: 0JBP0ZZ Excision of Left Lower Leg Subcutaneous Tissue and Fascia, Open Approach (ICD-10-PCS; principal; 2022-06-30 11:50)
PROC: 02HV33Z Insertion of Infusion Device into Superior Vena Cava, Percutaneous Approach (ICD-10-PCS; 2022-07-04)
PROC: B548ZZA Ultrasonography of Superior Vena Cava, Guidance (ICD-10-PCS; 2022-07-04)
PROC: 0JBP0ZZ Excision of Left Lower Leg Subcutaneous Tissue and Fascia, Open Approach (ICD-10-PCS; 2022-07-05)
DX: T87.81 Dehiscence of amputation stump (principal); E43 Unspecified severe protein-calorie malnutrition; M72.6 Necrotizing fasciitis; J96.01 Acute respiratory failure with hypoxia; K25.4 Chronic or unspecified gastric ulcer with hemorrhage; J98.11 Atelectasis; Z68.1 Body mass index [BMI] 19.9 or less, adult; I13.0 Hypertensive heart and chronic kidney disease with heart failure and stage 1 through stage 4 chronic kidney disease, or unspecified chronic kidney disease; I50.20 Unspecified systolic (congestive) heart failure; T87.44 Infection of amputation stump, left lower extremity; E78.00 Pure hypercholesterolemia, unspecified; E11.51 Type 2 diabetes mellitus with diabetic peripheral angiopathy without gangrene; I25.10 Atherosclerotic heart disease of native coronary artery without angina pectoris; D64.9 Anemia, unspecified; I48.0 Paroxysmal atrial fibrillation; I25.5 Ischemic cardiomyopathy; Z20.822 Contact with and (suspected) exposure to COVID-19; Y83.5 Amputation of limb(s) as the cause of abnormal reaction of the patient, or of later complication, without mention of misadventure at the time of the procedure; N18.9 Chronic kidney disease, unspecified; E11.22 Type 2 diabetes mellitus with diabetic chronic kidney disease; Y92.89 Other specified places as the place of occurrence of the external cause; Z79.4 Long term (current) use of insulin; Z79.899 Other long term (current) drug therapy; Z79.1 Long term (current) use of non-steroidal anti-inflammatories (NSAID); Z79.01 Long term (current) use of anticoagulants; Z68.29 Body mass index [BMI] 29.0-29.9, adult
CPT/HCPCS: 36415; 36430; 71045; 80048; 80053; 80305; 81003; 82948; 83735; 85025; 85610; 85730; 86677; 86886; 86900; 86901; 86920; 87070; 87075; 87081; 87205; 88304; 88305; 88313; 93005; 94640; 96374; 96375; 99285; A6248; C9113; J0295; J0360; J1170; J1815; J1940; J2060; J2185; J2250; J2270; J2405; J2543; J2704; J3010; J3490; J7030; J7060; J7613; P9016; Q0092